=== PATIENT | male | born 1950 | race Caucasian/White ===

== ENCOUNTER → 2016-10-17 | Outpatient (CLI) | payer MEDICAID ==
--- NOTE | 2016-10-17 14:18 | CT ---
EXAMINATION TYPE: CT urogram wo/w con DATE OF EXAM: 10/17/2016 2:04 PM COMPARISON: NONE HISTORY: Patient complains of episode of pelvic pain and gross hematuria. CT DLP: 2919 mGycm Automated exposure control for dose reduction was used. CONTRAST: Performed with IV Contrast, patient injected with 100 mL of Omnipaque 300. TECHNIQUE: Axial images 5 mm thick sections. Pre and postcontrast imaging is performed. Three-D recon structed images performed separately on the ventricular computer by the technologist and presented ar e performed through the renal collecting system. FINDINGS: Limited CT sections are obtained the lung bases which are clear CT ABDOMEN: Liver and spleen of normal density without discrete masses or cysts. The adrenal glands a re normal. Pancreas is unremarkable. Gallbladder is decompressed. Loops of bowel without contrast are normal. The appendix is normal. Note is made of some mild vascular calcification within the aorta. I nferior vena cava is unremarkable. Kidneys are normal without masses cysts or hydronephrosis. No renal stones are evident. On delayed im ages note is made of a tiny cortical renal cyst at the inferior pole right kidney. CT PELVIS: Sigmoid: Within the pelvis has scattered diverticuli without evidence of acute diverticuli tis. No free fluid is within the pelvis. The prostate is prominent and contains calcification. There is inferior impression on the urinary liz dder from the prostate. There is a hypodense dense area at the tip of the prostate which is impressin g on the urinary bladder. Uncertain whether this is a mock effect from the adjacent intense contrast or a more focal hypodense area within the prostate. Urinary bladder fills normally without filling de fects. Extramural defect of the urinary bladder from the prostate is evident. Ureters follow a normal course and contour to the urinary bladder. The left ureter is slightly more p rominent and better visualized than on the right. This could be related to recent passage of a stone. No obstruction is felt to be present. IMPRESSION: 1. MINIMAL PROMINENCE OF THE LEFT URETER COMPARED TO THE RIGHT WHICH CAN BE COMPATIBLE WITH RECENT PA SSAGE OF A RENAL STONE. 2. NO SUSPICIOUS RENAL OR URETERAL STONES ARE EVIDENT AT THIS TIME. NO SUSPICIOUS FILLING DEFECTS WIT HIN THE RENAL CALYCES INFUNDIBULUM RENAL PELVIS OR URETERS. 3. PROSTATE HYPERTROPHY. PLEASE SEE ABOVE DISCUSSION OF THE PROSTATE.
== END | disposition home or self-care (01) ==
LOC: RADCTMAIN 12:59
PROVIDERS: ATTEND Urology
DX: N40.0 Benign prostatic hyperplasia without lower urinary tract symptoms (principal)
CPT/HCPCS: 74178; 74400; Q9967

== ENCOUNTER → 2016-12-15 | Outpatient (CLI) | payer MEDICAID ==
--- NOTE | 2016-12-15 15:28 | MR ---
MR brain without contrast HISTORY: Memory loss, TIA Multiplanar multisequence imaging through the brain No comparisons Two small foci of hyperintensity are present within the left frontal white matter on inversion recove ry and T2-weighted sequences. Mucus retention cyst or polyp noted within the left maxillary sinus. Th ere are normal vascular flow voids. No hemorrhage or hydrocephalus. Mild cortical atrophy is likely a ge-related. Orbits show an unremarkable appearance. Cerebellopontine angles, corpus callosum, pituita ry, cervical medullary junction are normal. IMPRESSION: Nonspecific foci of demyelination questionable clinical significance. Minimal age-related atrophy suspected.
== END | disposition home or self-care (01) ==
LOC: RADMRIMAIN 14:21
PROVIDERS: ATTEND Psychiatry & Neurology Neurology
DX: G45.9 Transient cerebral ischemic attack, unspecified (principal)
CPT/HCPCS: 70551

== ENCOUNTER 2017-04-28 18:31 | Emergency (ER) | payer MEDICAID ==
[2017-04-28 18:40] VITALS: RESP 18; TEMP 98.7
[2017-04-28 19:00] LABS: Basophils # (A) 0.1 k/uL (0-0.2); Basophils % (A) 1 %; CH 30.7; CHCM 34.7; Eosinophils # (A) 0.3 k/uL (0-0.7); Eosinophils % (A) 4 %; HCT 42.1 % (39.0-53.0); HDW 2.73; HGB 14.6 gm/dL (13.0-17.5); Luc # (Auto) 0.17; Luc % (Auto) 3; Lymphocytes # (A) 1.6 k/uL (1.0-4.8); Lymphocytes % (A) 23 %; MCH 30.8 pg (25.0-35.0); MCHC 34.6 g/dL (31.0-37.0); MCV 89.2 fL (80.0-100.0); Mean Platelet Volume 7.9; Monocytes # (A) 0.4 k/uL (0-1.0); Monocytes % (A) 6 %; Neutrophils # (A) 4.5 k/uL (1.3-7.7); Neutrophils % (A) 63 %; RBC 4.72 m/uL (4.30-5.90); RDW 14.2 % (11.5-15.5); WBC (Perox) 7.19
[2017-04-28 19:12] LABS: ALT 39 U/L (21-72); AST 26 U/L (17-59); Alcohol <10 mg/dL; Alkaline Phosphatase 55 U/L (38-126); Anion Gap 10 mmol/L; Blood Urea Nitrogen 20 mg/dL (9-20); Calcium 9.2 mg/dL (8.4-10.2); Carbon Dioxide 21 mmol/L (22-30); Chloride 110 mmol/L (98-107); Glucose 105 mg/dL (74-99); Non-African American GFR(MDRD) >60 (>60 ml/min/1.73 sqM); Sodium 141 mmol/L (137-145); Total Bilirubin 0.7 mg/dL (0.2-1.3)
[2017-04-28 19:15] LABS: INR 1.1 (<1.2); Partial Thromboplastin Time 21.2 sec (22.0-30.0); Prothrombin Time 10.7 sec (9.0-12.0)
[2017-04-28 19:27] LABS: Creatine Kinase 66 U/L (55-170)
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
[2017-04-28 19:34] VITALS: BP 175/97
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
[2017-04-28 19:38] LABS: Appearance,Urine Clear (Clear); Bilirubin,Urine Negative (Negative); Glucose,Urine (UA) Negative (Negative); Ketones,Urine Negative (Negative); Leukocyte Esterase,Urine Negative (Negative); Nitrite,Urine Negative (Negative); Protein,Urine Negative (Negative); Specific Gravity,Urine 1.019 (1.001-1.035); UA Billing (MACRO vs. MICRO) CHEM; Urobilinogen,Urine <2.0 mg/dL (<2.0)
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
[2017-04-28 19:39] LABS: Troponin I <0.012 ng/mL (0.000-0.034)
[2017-04-28 19:40] LABS: Creatine Kinase MB 3.6 ng/mL (0.0-2.4)
--- NOTE | 2017-04-28 19:43 | XR ---
EXAMINATION TYPE: XR chest 1V portable DATE OF EXAM: 04/28/2017 COMPARISON: 01/29/2015 HISTORY: Fall TECHNIQUE: Single frontal view of the chest is obtained. FINDINGS: Heart and mediastinum are normal. Lungs are clear. There is no sign of pleural effusion. T here are chest leads. Bony thorax is intact. IMPRESSION: No active cardiopulmonary disease. No change.
[2017-04-28 20:25] VITALS: PULSE 82
== END 2017-04-28 20:26 | disposition home or self-care (01) ==
LOC: EC 18:31
DX: S06.0X1A Concussion with loss of consciousness of 30 minutes or less, initial encounter (principal); S29.012A Strain of muscle and tendon of back wall of thorax, initial encounter; S00.03XA Contusion of scalp, initial encounter; S00.31XA Abrasion of nose, initial encounter; S00.81XA Abrasion of other part of head, initial encounter; J34.1 Cyst and mucocele of nose and nasal sinus; R40.2412 Glasgow coma scale score 13-15, at arrival to emergency department; R68.84 Jaw pain; I10 Essential (primary) hypertension; Z79.82 Long term (current) use of aspirin; Z79.899 Other long term (current) drug therapy; Z88.7 Allergy status to serum and vaccine; V18.4XXA Pedal cycle driver injured in noncollision transport accident in traffic accident, initial encounter; Y92.89 Other specified places as the place of occurrence of the external cause; Y93.55 Activity, bike riding
CPT/HCPCS: 36415; 70450; 70486; 71010; 72125; 72128; 80053; 80306; 80320; 81003; 82550; 82553; 84484; 85025; 85610; 85730; 86850; 86900; 86901; 93005; 99285

== ENCOUNTER → 2017-10-14 | Outpatient (CLI) | payer MEDICAID ==
[2017-10-14 10:56] LABS: Basophils # (A) 0.1 k/uL (0-0.2); Basophils % (A) 1 %; Eosinophils # (A) 0.2 k/uL (0-0.7); Eosinophils % (A) 3 %; HCT 41.6 % (39.0-53.0); HGB 13.8 gm/dL (13.0-17.5); Lymphocytes # (A) 1.8 k/uL (1.0-4.8); Lymphocytes % (A) 27 %; MCH 29.2 pg (25.0-35.0); MCHC 33.1 g/dL (31.0-37.0); MCV 88.3 fL (80.0-100.0); Mean Platelet Volume 7.9; Monocytes # (A) 0.5 k/uL (0-1.0); Monocytes % (A) 8 %; Neutrophils # (A) 3.9 k/uL (1.3-7.7); Neutrophils % (A) 59 %; Platelet Count 276 k/uL (150-450); RBC 4.71 m/uL (4.30-5.90); RDW 14.3 % (11.5-15.5); WBC 6.5 k/uL (3.8-10.6)
[2017-10-14 11:27] LABS: ALT 30 U/L (21-72); AST 19 U/L (17-59); Albumin 4.4 g/dL (3.5-5.0); Alkaline Phosphatase 61 U/L (38-126); Anion Gap 12 mmol/L; Blood Urea Nitrogen 20 mg/dL (9-20); Calcium 9.4 mg/dL (8.4-10.2); Carbon Dioxide 25 mmol/L (22-30); Chloride 105 mmol/L (98-107); Cholesterol 214 mg/dL (<200); Glucose 106 mg/dL (74-99); HDL Cholesterol 46 mg/dL (40-60); LDL Cholesterol,Calculated 113 mg/dL (0-99); Potassium 4.3 mmol/L (3.5-5.1); Sodium 142 mmol/L (137-145); Total Protein 7.4 g/dL (6.3-8.2); Triglycerides 275 mg/dL (<150)
[2017-10-14 11:37] LABS: T4, Free (Free Thyroxine) 1.05 ng/dL (0.78-2.19)
[2017-10-14 11:51] LABS: Prostate Specific Antigen 1.24 ng/mL (0.00-4.00)
[2017-10-14 18:28] LABS: Hemoglobin A1C 5.2 % (4.0-6.0)
== END | disposition home or self-care (01) ==
LOC: LABWHC1 10:20
PROVIDERS: ATTEND Internal Medicine Geriatric Medicine
DX: Z00.00 Encounter for general adult medical examination without abnormal findings (principal); N40.0 Benign prostatic hyperplasia without lower urinary tract symptoms; I10 Essential (primary) hypertension; E78.5 Hyperlipidemia, unspecified; R73.9 Hyperglycemia, unspecified
CPT/HCPCS: 36415; 80053; 80061; 83036; 84153; 84439; 84443; 85025

== ENCOUNTER → 2018-12-01 | Outpatient (CLI) | payer MEDICAID ==
[2018-12-01 07:42] LABS: Basophils # (A) 0.1 k/uL (0-0.2); Basophils % (A) 1 %; Eosinophils # (A) 0.2 k/uL (0-0.7); Eosinophils % (A) 5 %; HCT 43.8 % (39.0-53.0); HGB 14.2 gm/dL (13.0-17.5); Lymphocytes # (A) 1.3 k/uL (1.0-4.8); Lymphocytes % (A) 27 %; MCH 29.7 pg (25.0-35.0); MCHC 32.5 g/dL (31.0-37.0); MCV 91.3 fL (80.0-100.0); Mean Platelet Volume 7.9; Monocytes # (A) 0.4 k/uL (0-1.0); Monocytes % (A) 8 %; Neutrophils # (A) 2.8 k/uL (1.3-7.7); Neutrophils % (A) 57 %; Platelet Count 231 k/uL (150-450); RDW 14.3 % (11.5-15.5); WBC 4.9 k/uL (3.8-10.6)
[2018-12-01 08:21] LABS: Albumin 4.3 g/dL (3.5-5.0); Calcium 9.2 mg/dL (8.4-10.2); Potassium 4.5 mmol/L (3.5-5.1); Total Protein 6.9 g/dL (6.3-8.2)
[2018-12-01 08:36] LABS: T4, Free (Free Thyroxine) 1.29 ng/dL (0.78-2.19)
[2018-12-01 14:19] LABS: Hemoglobin A1C 5.8 % (4.0-6.0)
--- NOTE | 2018-12-01 14:46 | US ---
EXAMINATION TYPE: US thyroid st tissue head/neck DATE OF EXAM: 12/01/2018 COMPARISON: MRI cervical spine 12/06/2014, CT cervical spine 04/28/2017 CLINICAL HISTORY: E04.1 Goiter. Hx of nodules from previous medical imaging. No prior ultrasound on thyroid. No thyroid medications. Patient states being exposed to radiation as a kid for sinus treat ments. GLAND SIZE: Right Lobe: 5.8 x 2.0 x 2.6 cm Overall Parenchyma: heterogenous Left Lobe: 4.0 x 1.4 x 1.3 cm Overall Parenchyma: heterogeneous Isthmus Thickness: 0.2 cm NODULES RIGHT: # of nodules measured on right: 4 Multi-nodular thyroid visualized. Multiple subcentimeter nodules visualized. Largest documented. 1. 1.8 X 1.6 x 1.6 cm mixed nodule at the mid pole with well-defined margins; . This nodule is wid er as tall and shows intranodular vascularity. Prior size: This is stable in size from the CT examination and the MRI examination which measured this nodule at 1.9 cm. 2. 2.0 X 1.6 x 2.1 cm mixed nodule vs lobular thyroid at the lower pole with poorly defined margins. This nodule is taller than wide and shows intranodular vascularity. Prior size: No previous 3. 1.1 X 0.8 x 0.5 cm isoechoic nodule at the upper anterior pole with well-defined margins. This nodule is wider than tall and shows intranodular vascularity. Prior size: No previous 4. 0.9 X 0.7 x 0.8 cm mixed nodule at the upper lateral pole with well-defined margins. This nodule is taller than wide and shows intranodular vascularity. Prior size: No previous LEFT: # of nodules measured on left: 2 1. 1.2 X 0.8 x 0.9 cm isoechoic nodule at the mid pole with poorly defined margins. This nodule is taller than wide and shows intranodular vascularity. Prior size: No previous 2. 0.4 X 0.5 x 0.4 cm hypoechoic nodule at the Lower pole with well-defined margins. This nodule i s wider than tall and shows no intranodular vascularity. Prior size: No previous ISTHMUS: # of nodules measured in the isthmus: 0 Bilateral neck scanned, no evidence of lymphadenopathy. Right thyroid lobe appears enlarged in size. IMPRESSION: 1. Multinodular goiter. The largest nodules are documented above. Monitor with ultrasound.
== END | disposition home or self-care (01) ==
LOC: RADUSWWP 06:50
PROVIDERS: ATTEND Internal Medicine Geriatric Medicine
DX: E04.2 Nontoxic multinodular goiter (principal); I10 Essential (primary) hypertension; R73.9 Hyperglycemia, unspecified; E78.5 Hyperlipidemia, unspecified; N40.0 Benign prostatic hyperplasia without lower urinary tract symptoms; E04.1 Nontoxic single thyroid nodule
CPT/HCPCS: 84439; 80061; 80053; 84443; 85025; 83036; 76536; 36415; G0103

== ENCOUNTER → 2019-02-25 | Outpatient (CLI) | payer MEDICAID ==
--- NOTE | 2019-02-25 09:13 | MR ---
EXAMINATION TYPE: MR knee LT wo con DATE OF EXAM: 02/25/2019 COMPARISON: X-ray 02/14/2019 HISTORY: Left knee pain TECHNIQUE: Multiplanar, multisequence imaging of the left knee is performed without IV contrast. FINDINGS: There is a large area of marrow edema involving the lateral femur extending to the articula r surface measuring approximately 5 x 5 cm. No definite fracture line. There is a complex tear involving the posterior horn and body of the lateral meniscus. Anterior horn extension not excluded. Intrasubstance signal the posterior horn the medial meniscus is most typical of mucoid degeneration. Degenerative tear not excluded. Articular cartilage is maintained. There is very minimal fibrillation involving the apex of the peterson lar cartilage. Small amount of fluid is seen in the suprapatellar bursa. Quadriceps and patellar tend ons intact. Within the popliteal fossa there is a 0.7 x 0.7 x 3.7 cm popliteal fossa cyst. Posterior cruciate ligaments have a normal appearance. Medial collateral ligament has a normal appearance. Anterior cruciate ligament demonstrates slight ill definition the posterior fibers which may represen t an ACL strain. No definite tear identified. There is thickening and increased signal at the femoral origin of the lateral collateral ligament com patible with severe sprain and partial tear. There is also increased intrasubstance signal within the popliteus tendon compatible with tendinosis without evidence of distinct tear. IMPRESSION: 1. Large area of marrow edema involving the lateral femur measuring 5 x 5 cm and extending to the art icular surface correlate for bone contusion. More focal area at the articular surface measuring 9 mm could represent developing osteochondritis or subchondral and tiny compression fracture.. Correlate f or history of trauma. 2. Thickening and increased signal at the femoral origin of the lateral collateral ligament compatibl e severe sprain and partial tear. 3. popliteus tendinosis. 4. complex tear posterior horn and body lateral meniscus. Anterior horn extension not excluded. 5. Findings involving the posterior horn of the medial meniscus most typical of myxoid degeneration. Degenerative tear not excluded. 6. ACL strain with no definite tear
== END | disposition home or self-care (01) ==
LOC: RADMRIMAIN 08:21
PROVIDERS: ATTEND Orthopaedic Surgery
DX: S83.422A Sprain of lateral collateral ligament of left knee, initial encounter (principal)

== ENCOUNTER → 2020-03-01 | Outpatient (CLI) | payer MEDICAID ==
--- NOTE | 2020-03-01 14:18 | XR ---
Left wrist HISTORY: Trauma and pain 4 views the left wrist Bone mineralization, joint spaces and alignment are maintained IMPRESSION: No fracture or dislocation
--- NOTE | 2020-03-01 14:58 | MR ---
EXAMINATION TYPE: MR knee RT wo con DATE OF EXAM: 03/01/2020 COMPARISON: 07/31/2014 HISTORY: 69-year-old male pain and swelling, M25.561 Pain in right knee, fell off ladder, prior imagi ng in pacs TECHNIQUE: Multiplanar, multisequence imaging of the right knee is performed without IV contrast. FINDINGS: ACL fibers are now inhomogeneous with some undulation. Findings suggest a proximal rupture or extensi ve partial tear. PCL is thickened at the upper limits of normal at 7 mm. There is some intrinsic increased signal on p ossible partial tear. Edema on either side of the intact MCL fibers. The iliotibial band is intact. Mild increased signal at the femoral attachment of the LCL proper. Ext ensive edema throughout the popliteus muscle suggesting strain and edema and some tearing along the m yotendinous junction. Conjoined tendon insertion appears intact. There is signal within the posterior horn of the medial meniscus extending to the junction with the m eniscal body. Signal may contact the tibial articular surface on one image, sagittal series 401 image 9. Lateral meniscus appears grossly intact with scattered degenerative signal. Mild superficial cartilage fraying within both medial and lateral compartments. More moderate to severe cartilage loss along the mid patella and medial patellar facet and mild diffu se thinning along the trochlear articular cartilage. Metal artifact related to prior internal fixation along the apex of the patella. Extensor mechanism appears intact. There are impaction fractures along the posterior lips of the tibial plateau on both sides. Along the posterior lip of the lateral tibial plateau, the fracture fragment is depressed by 4 mm and measures 1.7 cm wide by 1.0 cm AP. Along the posterior lip of the medial tibial plateau, there is only slight articular surface irregula rity. Very large knee joint effusion. There is edema suggesting extravasation of joint fluid into the deep soft tissues. Leaking Davis cyst is also demonstrated measuring 5.4 x 3.0 cm. Area of confluent edema also tracks along the superficial aspect of the popliteus muscle. Normal popliteal artery anatomy and muscle bulk. No suspicious bone marrow replacement. IMPRESSION: 1. Proximal ACL rupture versus extensive partial tear. 2. Grade 1 sprains of the MCL and proximal LCL proper. 3. Popliteus muscle strain with associated edema and hemorrhage and some tearing along its myotendino us junction. A concurrent posterolateral corner injury is not excluded given confluent edema here. 4. Impaction fractures along the posterior lips of both the lateral and medial tibial plateau. The la teral tibial plateau impaction fracture measures 1.7 x 1.0 cm with 4 mm of articular surface depressi on. No significant depression of the medial tibial plateau. 5. Possible oblique tear posterior horn of the medial meniscus. Signal extends to the tibial articula r surface on one slice. 6. Very large knee joint effusion. Extravasation of joint fluid into the deep soft tissues. A leaking Davis cyst measures 5.4 cm. 7. 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 Prior internal fixation at the woodruff llar apex.
== END | disposition home or self-care (01) ==
LOC: RADMRIMAIN 12:54
PROVIDERS: ATTEND Internal Medicine Geriatric Medicine
DX: M25.532 Pain in left wrist (principal); M25.561 Pain in right knee; M25.461 Effusion, right knee; S86.811A Strain of other muscle(s) and tendon(s) at lower leg level, right leg, initial encounter; M71.21 Synovial cyst of popliteal space [Baker], right knee; M22.41 Chondromalacia patellae, right knee

== ENCOUNTER → 2020-03-22 | Outpatient (CLI) | payer MEDICAID ==
[2020-03-22 12:16] LABS: Basophils # (A) 0.1 k/uL (0-0.2); Basophils % (A) 1 %; Eosinophils # (A) 0.1 k/uL (0-0.7); Eosinophils % (A) 1 %; HCT 42.2 % (39.0-53.0); HGB 13.8 gm/dL (13.0-17.5); Lymphocytes # (A) 1.5 k/uL (1.0-4.8); Lymphocytes % (A) 28 %; MCH 29.4 pg (25.0-35.0); MCHC 32.6 g/dL (31.0-37.0); Monocytes # (A) 0.4 k/uL (0-1.0); Monocytes % (A) 7 %; Neutrophils # (A) 3.4 k/uL (1.3-7.7); Neutrophils % (A) 61 %; Platelet Count 263 k/uL (150-450); RBC 4.69 m/uL (4.30-5.90); RDW 13.8 % (11.5-15.5); WBC 5.5 k/uL (3.8-10.6)
[2020-03-22 18:48] LABS: African American GFR (CKD) 89.2 (60.0-200.0); Albumin 4.1 g/dL (3.80-4.90); Albumin/Globulin Ratio 1.71 (1.60-3.17); Anion Gap 5.4 mmol/L (4.00-12.00); Carbon Dioxide 26.6 mmol/L (21.6-31.8); Chol/HDL Ratio 4.97; Globulin 2.4 g/dL (1.6-3.3); LDL Cholesterol,Calculated 109.8 mg/dL (0.0-131.0); Potassium 4.1 mmol/L (3.5-5.5); Total Bilirubin 0.9 mg/dL (0.3-1.2); Total Protein 6.5 g/dL (6.2-8.2); VLDL Calculation 41.2 mg/dL (5.00-40.00)
[2020-03-22 18:56] LABS: Prostate Specific Antigen 1.6 ng/mL (0.0-4.5); T4, Free (Free Thyroxine) 1.2 ng/dL (0.80-1.80)
[2020-03-22 20:44] LABS: Hemoglobin A1C 5.6 % (4.0-6.0)
== END | disposition home or self-care (01) ==
LOC: LABWHC1 11:44
PROVIDERS: ATTEND Internal Medicine Geriatric Medicine
DX: I10 Essential (primary) hypertension (principal); E78.2 Mixed hyperlipidemia; N40.0 Benign prostatic hyperplasia without lower urinary tract symptoms; E04.1 Nontoxic single thyroid nodule; R73.9 Hyperglycemia, unspecified
CPT/HCPCS: 36415; 80053; 80061; 83036; 84153; 84439; 84443; 85025

== ENCOUNTER → 2021-04-10 | Outpatient (CLI) | payer MEDICAID | END | disposition home or self-care (01) | LOC: LABWHC1 07:55 | PROVIDERS: ATTEND Thoracic Surgery (Cardiothoracic Vascular Surgery) | DX: Z20.822 Contact with and (suspected) exposure to COVID-19 (principal) | CPT/HCPCS: 87635 ==

== ENCOUNTER → 2021-08-15 | Outpatient (CLI) | payer MEDICAID | END | disposition home or self-care (01) | LOC: LABWHC1 12:04 | PROVIDERS: ATTEND Thoracic Surgery (Cardiothoracic Vascular Surgery) | DX: Z20.822 Contact with and (suspected) exposure to COVID-19 (principal) | CPT/HCPCS: 87635; C9803 ==

== ENCOUNTER → 2021-11-29 | Outpatient (CLI) | payer MEDICARE ==
--- NOTE | 2021-11-29 18:52 | ECHOF ---
Referral Reason:I34.0 Mitral valve insufficiency MEASUREMENTS -------- HEIGHT: 182.9 cm WEIGHT: 91.6 kg BP: RVIDd: 3.1 cm (< 3.3) IVSd: 1.3 cm (0.6 - 1.1) LVIDd: 4.7 cm (3.9 - 5.3) LVPWd: 1.0 cm (0.6 - 1.1) IVSs: 1.4 cm LVIDs: 3.3 cm LVPWs: 1.1 cm LAESV Index (A-L): 30.96 ml/m Ao Diam: 3.1 cm (2.0 - 3.7) AV Cusp: 1.8 cm (1.5 - 2.6) LA Diam: 4.1 cm (2.7 - 3.8) MV EXCURSION: 17.701 mm (> 18.000) MV EF SLOPE: 109 mm/s (70 - 150) EPSS: 0.3 cm MV E Satish: 0.53 m/s MV DecT: 190 ms MV A Satish: 0.76 m/s MV E/A Ratio: 0.70 RAP: 5.00 mmHg RVSP: 35.92 mmHg FINDINGS -------- Sinus rhythm. This was a technically adequate study. The left ventricular size is normal. There is mild concentric left ventricular hypertrophy. Overa ll left ventricular systolic function is normal with, an EF between 55 - 60 %. The diastolic fillin g pattern is normal for the age of the patient 12.29. The right ventricle is normal in size. LA is midly dilated 29-33ml/m2. The right atrial size is normal. Interatrial and interventricular septum intact. The aortic valve is trileaflet, and appears structurally normal. No aortic stenosis or regurgitation. The mitral valve leaflets are mildly thickened. Mild mitral regurgitation is present. The tricuspid valve appears structurally normal. Mild tricuspid regurgitation present. There is m ild pulmonary hypertension. The right ventricular systolic pressure, as measured by Doppler, is 35. 92mmHg. There is no pulmonic regurgitation present. The aortic root size is normal. There is no pericardial effusion. CONCLUSIONS -------- 1. There is mild concentric left ventricular hypertrophy. 2. Overall left ventricular systolic function is normal with, an EF between 55 - 60 %. 3. LA is midly dilated 29-33ml/m2. 4. The aortic valve is trileaflet, and appears structurally normal. No aortic stenosis or regurgitati on. 5. Mild mitral regurgitation is present. 6. Mild tricuspid regurgitation present. 7. There is mild pulmonary hypertension. 8. There is no pericardial effusion. FROZEN YOGURT MAKER: Ernestine Garcia RDCS
== END | disposition home or self-care (01) ==
LOC: RADECHMAIN 13:36
PROVIDERS: ATTEND Internal Medicine Geriatric Medicine
DX: I08.1 Rheumatic disorders of both mitral and tricuspid valves (principal); I27.20 Pulmonary hypertension, unspecified
CPT/HCPCS: 93306

== ENCOUNTER → 2022-01-01 | Outpatient (CLI) | payer MEDICARE ==
[2022-01-01 18:07] LABS: Basophils # (A) 0.07 X 10*3/uL (0.00-0.10); Basophils % (A) 1.1 %; Eosinophils # (A) 0.18 X 10*3/uL (0.04-0.35); Eosinophils % (A) 2.7 %; HCT 41.4 % (39.6-50.0); HGB 13.8 g/dL (13.0-17.0); Immature Grans, Automated 0.3 %; Lymphocytes # (A) 1.79 X 10*3/uL (0.90-5.00); Lymphocytes % (A) 27.2 %; MCH 30.1 pg (27.0-32.0); MCHC 33.3 g/dL (32.0-37.0); MCV 90.4 fL (80.0-97.0); Monocytes # (A) 0.84 X 10*3/uL (0.20-1.00); Monocytes % (A) 12.8 %; NRBC Per 100 WBC 0 /100 WBCS (0.0-0.0); Neutrophils # (A) 3.67 X 10*3/uL (1.80-7.70); Neutrophils % (A) 55.9 %; Platelet Count 266 X 10*3/uL (140-440); RBC 4.58 X 10*6/uL (4.40-5.60); RDW 13.9 % (11.5-14.5); WBC 6.57 X 10*3/uL (4.50-10.00)
[2022-01-01 18:49] LABS: ALT 33 U/L (10-49); AST 23 U/L (14-35); African American GFR (CKD) 64.1 (60.0-200.0); Albumin 4.6 g/dL (3.8-4.9); Albumin/Globulin Ratio 1.64 (1.60-3.17); Alkaline Phosphatase 56 U/L (41-126); BUN/Creat Ratio 21.54 Ratio (12.00-20.00); Calcium 9.3 mg/dL (8.7-10.3); Carbon Dioxide 27.9 mmol/L (20.0-27.5); Chloride 104 mmol/L (96-109); Chol/HDL Ratio 4.99 Ratio; Globulin 2.8 g/dL (1.6-3.3); Glucose 98 mg/dL (70-110); LDL Cholesterol,Calculated 114.5 mg/dL (0.0-131.0); Non-African American GFR(CKD) 55.3 (60.0-200.0); Potassium 4.2 mmol/L (3.5-5.5); Sodium 143 mmol/L (135-145); Total Protein 7.4 g/dL (6.2-8.2)
== END | disposition home or self-care (01) ==
LOC: LABWHC1 12:54
PROVIDERS: ATTEND Internal Medicine Geriatric Medicine
DX: E78.2 Mixed hyperlipidemia (principal); E04.1 Nontoxic single thyroid nodule; R73.9 Hyperglycemia, unspecified; N40.0 Benign prostatic hyperplasia without lower urinary tract symptoms
CPT/HCPCS: 84439; 80061; 80053; 84443; 85025; 83036; 36415; G0103

== ENCOUNTER → 2022-01-23 | Outpatient (CLI) | payer MEDICARE ==
--- NOTE | 2022-01-24 16:52 | US ---
EXAMINATION TYPE: US thyroid st tissue head/neck DATE OF EXAM: 01/23/2022 COMPARISON: US 2019 CLINICAL HISTORY: E04.1 NONTOXIC SINGLE THYROID NODULE. GLAND SIZE: Right Lobe: 5.7 x 2.2 x 2.1 cm Overall Parenchyma: heterogenous Left Lobe: 4.5 x 1.6 x 1.6 cm Overall Parenchyma: heterogeneous Isthmus Thickness: 0.3 cm NODULES RIGHT: # of nodules measured on right: 2 1. 1.6 X 1.6 x 1.8 cm, lower mid, solid or almost completely solid, hypoechoic nodule, which is wid er than tall, with ill-defined margins, without echogenic foci. Prior size: 1.8 x 1.6 x 1.6 cm 2. 1.8 X 1.7 x 1.7 cm, lower mid, solid or almost completely solid, hypoechoic nodule, which is wid er than tall, with ill-defined margins, without echogenic foci. TR 4. Prior size: 2.0 x 2.1 x 1.6 cm 3. multiple subcentimeter nodules LEFT: # of nodules measured on left: 1 1. 1.2 X 0.8 x 1.0 cm, upper mid, mixed cystic and solid, isoechoic nodule, which is wider than levy l, with ill-defined margins, without echogenic foci. TR 2 Prior size: 1.2 x 0.9 x 0.8 cm 2. multiple subcentimeter nodules ISTHMUS: # of nodules measured in the isthmus: 0 Bilateral neck scanned, no evidence of lymphadenopathy. IMPRESSION: 1. Heterogenous thyroid. 2. Moderately suspicious nodule mid right lobe thyroid. Biopsy of this nodule is recommended if not previously performed. 2017 ACR TI-RADS LEVEL: TR-RADS 4 - Moderately Suspicious: Follow if > 1 cm, FNA if > 1.5 cm *Highest TI-RADS level nodule reported
== END | disposition home or self-care (01) ==
LOC: RADUSWWP 15:24
PROVIDERS: ATTEND Internal Medicine Geriatric Medicine
DX: E04.2 Nontoxic multinodular goiter (principal)
CPT/HCPCS: 76536

== ENCOUNTER → 2022-05-20 | Outpatient (CLI) | payer MEDICARE ==
[2022-05-20 09:27] LABS: Basophils # (A) 0.1 k/uL (0-0.2); Basophils % (A) 1 %; Eosinophils # (A) 0.3 k/uL (0-0.7); Eosinophils % (A) 4 %; HCT 40.9 % (39.0-53.0); HGB 14.2 gm/dL (13.0-17.5); Lymphocytes # (A) 1.8 k/uL (1.0-4.8); Lymphocytes % (A) 24 %; MCH 30.6 pg (25.0-35.0); MCHC 34.8 g/dL (31.0-37.0); MCV 88.1 fL (80.0-100.0); Mean Platelet Volume 8.4; Monocytes # (A) 0.5 k/uL (0-1.0); Monocytes % (A) 7 %; Neutrophils # (A) 4.6 k/uL (1.3-7.7); Neutrophils % (A) 63 %; Platelet Count 215 k/uL (150-450); RBC 4.64 m/uL (4.30-5.90); RDW 14.2 % (11.5-15.5); WBC 7.3 k/uL (3.8-10.6)
[2022-05-20 09:38] LABS: AST 35 U/L (17-59); African American GFR (CKD) 83 (>60 ml/min/1.73 sqM); Albumin 4.4 g/dL (3.5-5.0); Albumin/Globulin Ratio 1.5; Anion Gap 12 mmol/L; Blood Urea Nitrogen 19 mg/dL (9-20); Carbon Dioxide 24 mmol/L (22-30); Chloride 105 mmol/L (98-107); Glucose 94 mg/dL (74-99); Non-African American GFR(CKD) 72 (>60 ml/min/1.73 sqM); Potassium 4.4 mmol/L (3.5-5.1); Sodium 141 mmol/L (137-145); Total Bilirubin 0.8 mg/dL (0.2-1.3); Total Protein 7.4 g/dL (6.3-8.2)
[2022-05-20 09:39] LABS: ALT 29 U/L (4-49); Alkaline Phosphatase 56 U/L (38-126)
--- NOTE | 2022-05-20 10:01 | MR ---
EXAMINATION TYPE: MR brain wo/w con DATE OF EXAM: 05/20/2022 COMPARISON: 04/28/2017, 12/15/2016 HISTORY: Right arm and thigh numbness. TECHNIQUE: Multiplanar, multisequence images of the brain and brainstem is performed without and with IV contras t, utilizing 10 mL intravenous Gadavist . FINDINGS: Diffusion weighted images demonstrate no evidence of a recent infarct or other diffusion ab normality. Tiny area of increased signal involving the superior right parietal cortex 3 mm on diffusi on imaging appears to be artifactual. There are couple focal sub-5 mm areas of abnormal signal in the white matter to small to characterize and of doubtful significance and likely on the basis of remote microvascular ischemic. The brain volume is age appropriate. Midline structures demonstrate normal morphology. The craniocervical junction appears within normal limits. Post contrast images demonstrate reduced enhancement in the anterior pituitary gland is smal l neoplasm likely on the basis of a pituitary microadenoma. There is a 1 mm area of enhancement near the left thalamus postcontrast axial image 15 to small to characterize. May be vascular related to ti ny cryptic AVM The dural venous sinuses appear patent. Changes of chronic sinusitis. Orbits are symme tric. IMPRESSION: 1. Minimal nonspecific white matter changes most typical of remote white matter ischemia. 2. There is a 5 mm area of reduced signal in the anterior pituitary gland postcontrast images suspici ous for a microadenoma correlate clinically. 3. There is a 1 to 2 mm nodular area of enhancement left thalamus too small to characterize. The dens ity in the basis of tiny cryptic AVM. Recommend short-term follow-up 3-6 month MRI with contrast for stability to exclude other etiologies..
--- NOTE | 2022-05-20 11:00 | XR ---
EXAMINATION TYPE: XR cervical spine comp DATE OF EXAM: 05/20/2022 TECHNIQUE: Frontal, lateral, oblique, and open mouth view of the cervical spine are obtained. HISTORY: [id number] COMPARISON: CTA neck same day. FINDINGS: The cervical spine is visualized in its entirety from C1 thru the top of T1 level, it is s atisfactory in alignment without evidence of acute fracture or dislocation. The pre-vertebral soft t issue appears within normal limits. The C1-C2 articulation is within normal limits on the open mouth view. Vertebral body heights are maintained. Mild disc space narrowing and anterior spurring C5-C6 level. Mild disc space narrowing C7-T1 level. Prominent spur from the anterior-inferior C3 vertebra. The oblique images show some neural foraminal narrowing of bilateral C3-C4 level due to uncovertebral facet spurring and at left C4-C5 level. Mild calcified plaque left carotid bulb noted in the overlyi ng soft tissue. IMPRESSION: As above.
--- NOTE | 2022-05-20 11:05 | CT ---
EXAMINATION TYPE: CT angio neck CT DLP: 324.20 mGycm, Automated exposure control for dose reduction was used. DATE OF EXAM: 05/20/2022 10:45 AM COMPARISON: CT cervical thoracic spine 04/28/2017. CLINICAL INDICATION:Male, 71 years old with history of I63.9 CEREBRAL INFARCTION, UNSPECIFIED; PHH, C erebral Infarction TECHNIQUE: Axially acquired helical CT angiogram of the neck was obtained with contrast utilizing 65 cc of Isovue-370 administered intravenously. Axial images are supplemented with 3D reconstructions wh ich were post-processed at an independent workstation. NASCET criteria used. FINDINGS: CTA NECK: Right Carotid System: The common carotid artery and external carotid artery are patent. The carotid bifurcation demonstrate s no evidence of hemodynamically significant stenosis. The remaining portions of the internal carotid artery demonstrate normal size without significant narrowing. Left Carotid System: The common carotid artery and external carotid artery are patent. Mild calcified plaque at the caroti d bulb. The carotid bifurcation demonstrates no evidence of hemodynamically significant stenosis. The remaining portions of the internal carotid artery demonstrate normal size without significant narrow ing. Vertebral arteries are patent without evidence hemodynamically significant stenosis. Right vertebral artery is dominant. There is a three-vessel aortic arch. The origins of the great vessels are patent. No evidence of hemo dynamically significant stenosis. Degenerative changes of the visualized spine. Multinodular enlarged thyroid gland. This is most prominent involving the right thyroid lobe. IMPRESSION: 1. No evidence of dissection of the cervical internal carotid arteries or vertebral arteries or any e vidence of significant stenosis at the carotid bifurcations. 2. Multinodular thyroid goiter.
[2022-05-20 11:18] LABS: Erythrocyte Sedimentation Rate 9 mm/hr (0-15)
[2022-05-20 17:43] LABS: Chol/HDL Ratio 6.38 Ratio
== END | disposition home or self-care (01) ==
LOC: RADMRIMAIN 08:39
PROVIDERS: ATTEND Internal Medicine Geriatric Medicine
DX: I63.9 Cerebral infarction, unspecified (principal)
CPT/HCPCS: 80061; 80053; 85652; 82607; 82746; 84443; 85025; 83721; 72050; 70498; 36415; 70553; Q9967; A9585

== ENCOUNTER → 2022-06-25 | Outpatient (CLI) | payer MEDICARE ==
[2022-06-25 08:44] LABS: Basophils # (A) 0.1 k/uL (0-0.2); Basophils % (A) 1 %; Eosinophils # (A) 0.2 k/uL (0-0.7); Eosinophils % (A) 3 %; HCT 41.4 % (39.0-53.0); HGB 14.2 gm/dL (13.0-17.5); Lymphocytes # (A) 1.4 k/uL (1.0-4.8); Lymphocytes % (A) 23 %; MCH 30.6 pg (25.0-35.0); MCHC 34.3 g/dL (31.0-37.0); Mean Platelet Volume 8.3; Monocytes # (A) 0.4 k/uL (0-1.0); Monocytes % (A) 7 %; Neutrophils % (A) 65 %; Platelet Count 246 k/uL (150-450); RBC 4.65 m/uL (4.30-5.90); RDW 14.1 % (11.5-15.5); WBC 6.1 k/uL (3.8-10.6)
[2022-06-25 15:41] LABS: ALT 39 U/L (10-49); AST 25 U/L (14-35); African American GFR (CKD) 70.6 (60.0-200.0); Albumin 4.2 g/dL (3.8-4.9); Albumin/Globulin Ratio 1.45 (1.60-3.17); Alkaline Phosphatase 54 U/L (41-126); BUN/Creat Ratio 16.33 Ratio (12.00-20.00); Blood Urea Nitrogen 19.6 mg/dL (9.0-27.0); Calcium 8.8 mg/dL (8.7-10.3); Carbon Dioxide 22.9 mmol/L (20.0-27.5); Chloride 110 mmol/L (96-109); Chol/HDL Ratio 4.45 Ratio; Globulin 2.9 g/dL (1.6-3.3); Glucose 111 mg/dL (70-110); LDL Cholesterol,Calculated 77.4 mg/dL (0.0-131.0); Non-African American GFR(CKD) 60.9 (60.0-200.0); Potassium 4.1 mmol/L (3.5-5.5); Sodium 144 mmol/L (135-145); Total Protein 7.1 g/dL (6.2-8.2)
== END | disposition home or self-care (01) ==
LOC: LABWHC1 08:13
PROVIDERS: ATTEND Internal Medicine Geriatric Medicine
DX: N40.0 Benign prostatic hyperplasia without lower urinary tract symptoms (principal); R79.9 Abnormal finding of blood chemistry, unspecified
CPT/HCPCS: 36415; 80053; 80061; 82024; 84153; 84403; 84439; 84443; 85025

== ENCOUNTER → 2022-10-31 | Outpatient (CLI) | payer MEDICARE ==
--- NOTE | 2022-10-31 09:09 | US ---
EXAMINATION TYPE: US renal artery duplex complete DATE OF EXAM: 10/31/2022 COMPARISON: NONE CLINICAL HISTORY: I10 htn. Patient is on 3 different hypertensive meds to control htn. MEASUREMENTS: RENAL SIZE: Rt Kidney: 10.6 x 4.8 x 4.8cm Lt Kidney: 10.4 x 5.6 x 5.5cm RESISTANCE INDEX Right: 0.62 Left: 0.62 RA/AO RATIO (< 3.5 ) Right: 1.5 Left: 1.0 RA VELOCITY ( < 180 cm/s) Right: 163cm/s Left: 111.cm/s Proximal aorta obscured by overlying bowel gas. Visualized portion of aorta appears within normal limits, some minimal plaque seen midline. Small left parapelvic cyst measuring 0.8 x 0.7 x 0.9 cm. No hydronephrosis, nephrolithiasis, or solid mass identified within both kidneys. Sharp upstroke of segmental arteries, no evidence of renal artery stenosis with this ultrasound. IMPRESSION: No ultrasound evidence of renal artery stenosis.
--- NOTE | 2022-10-31 09:10 | US ---
EXAMINATION TYPE: US abdomen complete DATE OF EXAM: 10/31/2022 COMPARISON: NONE CLINICAL HISTORY: I10 htn. TECHNIQUE: Multiple sonographic images of the abdomen are obtained. FINDINGS: EXAM MEASUREMENTS: Liver Length: 13.5 cm Gallbladder Wall: 0.2 cm CBD: 0.1 cm Spleen: 11.0 cm Right Kidney: 10.6 x 4.8 x 4.7 cm Left Kidney: 10.4 x 5.6 x 5.5 cm ROLE PLAYER NOTES: Extensive overlying bowel gas, technically difficult, somewhat limited study. Pancreas: Obscured by bowel gas Liver: wnl Gallbladder: wnl Evidence for sonographic Jiménez's sign: no CBD: wnl Upper IVC: wnl Spleen: wnl These images in renal artery study. Right Kidney: wnl Left Kidney: cyst measuring 0.8 x 0.7 x 0.9 Abd Aorta: The liver is homogenous. The intrahepatic portion of the IVC and proximal abdominal aorta are within normal limits. There is no evidence of cholelithiasis. Common bile duct is unremarkable. The panc reas is obscured by overlying bowel gas. The spleen is unremarkable. Kidneys are symmetric and free of hydronephrosis. Renal sinus cyst identified in the left kidney measuring up to 0.9 cm. Cortical me dullary differentiation is maintained bilaterally. IMPRESSION: No acute process.
== END | disposition home or self-care (01) ==
LOC: RADUSWWP 06:55
PROVIDERS: ATTEND Internal Medicine Geriatric Medicine
DX: I10 Essential (primary) hypertension (principal); R10.9 Unspecified abdominal pain
CPT/HCPCS: 76700; 93975

== ENCOUNTER → 2022-12-03 | Outpatient (CLI) | payer MEDICARE ==
[2022-12-03 11:03] LABS: Basophils # (A) 0.12 X 10*3/uL (0.00-0.10); Basophils % (A) 1.6 %; Eosinophils # (A) 0.28 X 10*3/uL (0.04-0.35); Eosinophils % (A) 3.6 %; HCT 43.1 % (39.6-50.0); HGB 14.3 g/dL (13.0-17.0); Immature Grans, Automated 0.3 %; Lymphocytes # (A) 2.48 X 10*3/uL (0.90-5.00); Lymphocytes % (A) 32.2 %; MCH 30.2 pg (27.0-32.0); MCHC 33.2 g/dL (32.0-37.0); MCV 90.9 fL (80.0-97.0); Mean Platelet Volume 10.4 fL (9.5-12.2); Monocytes # (A) 0.88 X 10*3/uL (0.20-1.00); Monocytes % (A) 11.4 %; NRBC Per 100 WBC 0 /100 WBCS (0.0-0.0); Neutrophils # (A) 3.92 X 10*3/uL (1.80-7.70); Neutrophils % (A) 50.9 %; Platelet Count 284 X 10*3/uL (140-440); RBC 4.74 X 10*6/uL (4.40-5.60); RDW 14.6 % (11.5-14.5)
[2022-12-03 11:13] LABS: ALT 42 U/L (10-49); AST 25 U/L (14-35); African American GFR (CKD) 72.8 (60.0-200.0); Albumin 4.4 g/dL (3.8-4.9); Albumin/Globulin Ratio 1.65 (1.60-3.17); Alkaline Phosphatase 55 U/L (41-126); BUN/Creat Ratio 16.15 Ratio (12.00-20.00); Blood Urea Nitrogen 18.9 mg/dL (9.0-27.0); Calcium 9.2 mg/dL (8.7-10.3); Carbon Dioxide 24.6 mmol/L (20.0-27.5); Chloride 108 mmol/L (96-109); Globulin 2.7 g/dL (1.6-3.3); Glucose 119 mg/dL (70-110); Non-African American GFR(CKD) 62.8 (60.0-200.0); Potassium 4.2 mmol/L (3.5-5.5); Sodium 143 mmol/L (135-145); Total Protein 7.1 g/dL (6.2-8.2)
== END | disposition home or self-care (01) ==
LOC: LABWHC1 07:46
PROVIDERS: ATTEND Internal Medicine Geriatric Medicine
DX: E78.2 Mixed hyperlipidemia (principal); I63.9 Cerebral infarction, unspecified; R73.9 Hyperglycemia, unspecified; E07.9 Disorder of thyroid, unspecified; R97.20 Elevated prostate specific antigen [PSA]
CPT/HCPCS: 36415; 80053; 80061; 83036; 84153; 84439; 84443; 85025

== ENCOUNTER → 2023-03-16 | Outpatient (CLI) | payer MEDICARE ==
--- NOTE | 2023-03-17 09:31 | MR ---
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 The patient was then given intravenous contrast and multi planar, T1 fat-saturation images wer e obtained. IV Contrast: 9 cc Gadavist FINDINGS: Stable appearing nonenhancing lesion in the pituitary gland which is not significantly changed from p rior measuring 6 mm in anterior-posterior dimension. Left thalamus and area of enhancement does not d emonstrate enhancement on today's exam it is low T1 high T2 signal with corresponding susceptibility weighted blooming artifact. The milligan-white junctions, ventricular system, basal cisterns appear unremarkable. Diffusion-weighted imaging shows no evidence of restricted diffusion to suggest acute/subacute infarct. Intracranial art erial flow voids are maintained. Midline structures show no abnormality. Mild scattered foci of high T2 signal intensity are seen within the periventricular white matter. After administration of gadolin ium, no abnormal enhancement is seen. The bone marrow signal is within normal limits. Paranasal sinuses and mastoid air cells: No significant paranasal sinus disease. Visualized orbits: Orbital contents are intact. IMPRESSION: 1. Pinpoint area of enhancement on prior MRI brain 05/20/2022 does not demonstrate enhancement on francine kidd's exam. It is low T1 high T2 signal with blooming artifact suggesting hemosiderin deposition findi ngs could represent small cavernoma given the blooming artifact. 2. 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 3. No evidence for acute/subacute infarct, or abnormal enhancement. 4. Minimal nonspecific white matter changes, likely related to small vessel ischemic disease
== END | disposition home or self-care (01) ==
LOC: RADMRIMAIN 18:45
PROVIDERS: ATTEND Internal Medicine Geriatric Medicine
DX: Q28.2 Arteriovenous malformation of cerebral vessels (principal); D35.2 Benign neoplasm of pituitary gland; R90.82 White matter disease, unspecified
CPT/HCPCS: 70553; A9585

== ENCOUNTER → 2023-05-29 | Outpatient (CLI) | payer MEDICARE ==
[2023-05-29 16:31] LABS: HCT 44.8 % (39.6-50.0); HGB 14.9 d/dL (13.0-17.0); MCH 30.4 pg (27.0-32.0); MCHC 33.3 d/dL (32.0-37.0); MCV 91.4 FL (80.0-97.0); Mean Platelet Volume 11.1 FL (9.5-12.2); NRBC Per 100 WBC 0 X 10*3/uL (0.00-0.01); Platelet Count 277 X 10*3/uL (140-440); RDW 13.9 % (11.5-14.5)
[2023-05-29 16:50] LABS: Chol/HDL Ratio 4.86 Ratio
[2023-05-29 16:51] LABS: ALT 34 U/L (10-49); AST 22 U/L (14-35); Albumin 4.5 d/dL (3.8-4.9); Albumin/Globulin Ratio 1.67 Ratio (1.60-3.17); Alkaline Phosphatase 60 U/L (41-126); BUN/Creat Ratio 18.46 Ratio (12.00-20.00); Calcium 9.4 mg/dL (8.7-10.3); Carbon Dioxide 25.5 mmol/L (21.6-31.8); Chloride 106 mmol/L (96-109); Globulin 2.7 d/dL (1.6-3.3); Glucose 99 mg/dL (70-110); LDL Cholesterol,Calculated 54.5 mg/dL (0.0-131.0); Potassium 4.7 mmol/L (3.5-5.5); Sodium 142 mmol/L (135-145); T4, Free (Free Thyroxine) 1.32 ng/dL (0.80-1.80); Total Bilirubin 0.8 mg/dL (0.3-1.2); Total Protein 7.2 d/dL (6.2-8.2)
== END | disposition home or self-care (01) ==
LOC: LABWHC1 12:06
PROVIDERS: ATTEND Thoracic Surgery (Cardiothoracic Vascular Surgery)
DX: Z00.00 Encounter for general adult medical examination without abnormal findings (principal); Z12.5 Encounter for screening for malignant neoplasm of prostate
CPT/HCPCS: 84439; 80053; 80061; 84443; 85027; 36415; G0103

== ENCOUNTER → 2023-11-25 | Outpatient (CLI) | payer MEDICARE, BC ==
[2023-11-25 16:19] LABS: ALT 32 U/L (10-49); AST 19 U/L (14-35); Albumin 4.5 g/dL (3.8-4.9); Albumin/Globulin Ratio 1.55 Ratio (1.60-3.17); Alkaline Phosphatase 66 U/L (41-126); BUN/Creat Ratio 14.45 Ratio (12.00-20.00); Blood Urea Nitrogen 15.9 mg/dL (9.0-27.0); Calcium 9.4 mg/dL (8.7-10.3); Chloride 107 mmol/L (96-109); Chol/HDL Ratio 4.77 Ratio; Globulin 2.9 g/dL (1.6-3.3); Glucose 113 mg/dL (70-110); LDL Cholesterol,Calculated 97.2 mg/dL (0.0-131.0); Potassium 4.7 mmol/L (3.5-5.5); Prostate Specific Antigen 3.52 ng/mL (0.000-6.500); Sodium 145 mmol/L (135-145); T4, Free (Free Thyroxine) 1.24 ng/dL (0.80-1.80); Total Bilirubin 0.8 mg/dL (0.3-1.2); Total Protein 7.4 g/dL (6.2-8.2)
[2023-11-25 16:40] LABS: Basophils # (A) 0.11 X 10*3/uL (0.00-0.10); Basophils % (A) 1.5 %; Eosinophils # (A) 0.42 X 10*3/uL (0.04-0.35); Eosinophils % (A) 5.9 %; HCT 44.1 % (39.6-50.0); HGB 14.4 g/dL (13.0-17.0); Lymphocytes # (A) 1.92 X 10*3/uL (0.90-5.00); MCH 29.9 pg (27.0-32.0); MCHC 32.7 g/dL (32.0-37.0); MCV 91.5 FL (80.0-97.0); Mean Platelet Volume 10.7 FL (9.5-12.2); Monocytes # (A) 0.79 X 10*3/uL (0.20-1.00); Monocytes % (A) 11.1 %; NRBC Per 100 WBC 0 X 10*3/uL (0.00-0.01); Neutrophils # (A) 3.85 X 10*3/uL (1.80-7.70); Neutrophils % (A) 54.2 %; Platelet Count 241 X 10*3/uL (140-440); RBC 4.82 X 10*6/uL (4.40-5.60); RDW 14.7 % (11.5-14.5); WBC 7.11 X 10*3/uL (4.50-10.00)
== END | disposition home or self-care (01) ==
LOC: LABWHC1 11:15
PROVIDERS: ATTEND Internal Medicine Geriatric Medicine
DX: Z13.1 Encounter for screening for diabetes mellitus (principal); I10 Essential (primary) hypertension; E78.2 Mixed hyperlipidemia; E07.9 Disorder of thyroid, unspecified; R97.20 Elevated prostate specific antigen [PSA]
CPT/HCPCS: 36415; 80053; 80061; 83036; 84153; 84439; 84443; 85025

== ENCOUNTER → 2024-01-28 | Outpatient (CLI) | payer MEDICARE ==
[2024-01-28 15:41] LABS: Basophils # (A) 0.04 X 10*3/uL (0.00-0.10); Basophils % (A) 0.6 %; Eosinophils # (A) 0.15 X 10*3/uL (0.04-0.35); Eosinophils % (A) 2.3 %; HCT 41.5 % (39.6-50.0); HGB 13.3 g/dL (13.0-17.0); MCV 93.5 FL (80.0-97.0); Monocytes # (A) 0.97 X 10*3/uL (0.20-1.00); Monocytes % (A) 14.6 %; NRBC Per 100 WBC 0 X 10*3/uL (0.00-0.01); Neutrophils # (A) 3.69 X 10*3/uL (1.80-7.70); Neutrophils % (A) 55.3 %; Platelet Count 239 X 10*3/uL (140-440); RBC 4.44 X 10*6/uL (4.40-5.60); RDW 14.2 % (11.5-14.5); WBC 6.66 X 10*3/uL (4.50-10.00)
[2024-01-28 15:47] LABS: ALT 37 U/L (10-49); AST 24 U/L (14-35); Albumin 4.4 g/dL (3.8-4.9); Albumin/Globulin Ratio 1.69 Ratio (1.60-3.17); Alkaline Phosphatase 78 U/L (41-126); Amylase 36 U/L (23-121); BUN/Creat Ratio 14.38 Ratio (12.00-20.00); Blood Urea Nitrogen 18.7 mg/dL (9.0-27.0); Calcium 9.2 mg/dL (8.7-10.3); Carbon Dioxide 24.5 mmol/L (21.6-31.8); Chloride 104 mmol/L (96-109); Globulin 2.6 g/dL (1.6-3.3); Glucose 107 mg/dL (70-110); Lipase 31 U/L (14-60); Potassium 4.2 mmol/L (3.5-5.5); Sodium 138 mmol/L (135-145); Total Bilirubin 0.8 mg/dL (0.3-1.2)
== END | disposition home or self-care (01) ==
LOC: LABWHC1 10:55
PROVIDERS: ATTEND Internal Medicine Geriatric Medicine
DX: R10.9 Unspecified abdominal pain (principal)
CPT/HCPCS: 36415; 80053; 82150; 83690; 85025

== ENCOUNTER → 2024-01-29 | Outpatient (CLI) | payer MEDICARE ==
[2024-01-29 18:59] LABS: Appearance,Urine Cloudy (Clear); Bilirubin,Urine Negative (Negative); Blood,Urine Negative (Negative); Color,Urine Dark Yellow (Yellow); Ketones,Urine Trace (Negative); Nitrite,Urine Negative (Negative); Specific Gravity,Urine 1.026 (1.001-1.030)
[2024-01-29 19:13] LABS: Bacteria,Urine Trace (None Seen); Calcium Oxalate Crystals,Urine Present (None Seen)
--- NOTE | 2024-01-30 17:18 | CT ---
EXAMINATION TYPE: CT abdomen pelvis w con CT DLP: 1240.6 mGycm, Automated exposure control for dose reduction was used. DATE OF EXAM: 01/29/2024 4:43 PM COMPARISON: 10/17/2016 CLINICAL INDICATION:Male, 73 years old with history of K57.93 DVTRCLI OF INTEST, PART UNSP, W/O PERF OR A; Lower abdominal pain x 2 weeks, history of diverticulitis TECHNIQUE: Axial CT abdomen pelvis w con;Sagittal and coronal reformats were created on a separate w orkstation. Contrast used:80 mL of Isovue 300 with IV Contrast, (none if empty) Oral contrast used: with Oral Contrast (none if empty) FINDINGS: LOWER CHEST: Coronary calcifications involving the left anterior descending and circumflex coronary a rteries. ABDOMEN LIVER: Unremarkable GALLBLADDER AND BILE DUCTS: Unremarkable. PANCREAS: Unremarkable. SPLEEN: Unremarkable. ADRENAL GLANDS: Unremarkable. KIDNEYS AND URETERS: No evidence of hydronephrosis or renal calculus. The ureters are unremarkable. PELVIS BLADDER: Unremarkable REPRODUCTIVE: Prostate is enlarged in size measuring 6.2. Cm in transverse dimension. ABDOMEN & PELVIS STOMACH AND BOWEL: No evidence of bowel obstruction. There are scattered colonic diverticula. There i s increased vascularity but no crystal inflammation around the colon to suggest diverticulitis. PERITONEUM/RETROPERITONEUM: No evidence of pneumoperitoneum or free fluid. VASCULATURE: Mild atherosclerotic calcifications are present throughout the abdominal aorta and its b ranches. No evidence of aortic aneurysm. MUSCULOSKELETAL: No acute osseous abnormalities. Mild disc degeneration changes are present throughou t the thoracolumbar spine. LYMPH NODES: No gross evidence for lymphadenopathy. SOFT TISSUE/ABDOMINAL WALL: Left fat-containing inguinal hernia. IMPRESSION: 1. No evidence for acute abdominal process. No evidence for obstructive uropathy or renal calculus. The bladder carranza are within normal limits. 2. Prostatomegaly, correlate with serum PSA. Findings communicated to Dr. Johan Abarca DO on 01/30/2024 5:[address] Keith Shannon.
== END | disposition home or self-care (01) ==
LOC: RADCTMAIN 14:47
PROVIDERS: ATTEND Thoracic Surgery (Cardiothoracic Vascular Surgery)
DX: K57.93 Diverticulitis of intestine, part unspecified, without perforation or abscess with bleeding (principal); N40.0 Benign prostatic hyperplasia without lower urinary tract symptoms
CPT/HCPCS: 81001; 74177; Q9967

== ENCOUNTER 2024-02-09 07:16 | Day surgery (SDC) | payer MEDICARE ==
[2024-02-08 10:34] VITALS: BMI 26.6
[~2024-02-09 07:16] MED LIST: LIDOCAINE 1% (10MG/ML) FOR IV START INTRADERMA PRN
[2024-02-09 07:30] VITALS: RESP 16; TEMP 97.4
[2024-02-09] MEDS: IV FLUID CONTINUATION 1,000 ML IV ONE (07:41)
[2024-02-09] MEDS: LACTATED RINGERS 1,000 ML IV SCH (07:41)
[2024-02-09] MEDS ORDERED: PROPOFOL 10 MG/ML 20 ML VIAL IV ONE (08:07)
--- NOTE | 2024-02-09 08:10 | P.GSHP ---
History of Present Illness H&P Date: 02/09/24 Chief Complaint: Change in bowel habits 74-year-old male here for colonoscopy. Patient has had recent lower abdominal discomfort and pressure-like pain. Some looser stools. No rectal bleeding. Stools are narrow. Past Medical History Past Medical History: Hypertension History of Any Multi-Drug Resistant Organisms: None Reported Past Surgical History: Orthopedic Surgery, Tonsillectomy Additional Past Surgical History / Comment(s): Right patella surgery, dislocated mandible. Past Anesthesia/Blood Transfusion Reactions: No Reported Reaction, Motion Sickness Smoking Status: Never smoker - Past Family History Mother Family Medical History: Deep Vein Thrombosis (DVT) Medications and Allergies Home Medications Medication Instructions Recorded Confirmed Type Aspirin [Adult Low Dose Aspirin EC] 81 mg PO DAILY 04/28/17 02/08/24 History Vitamin B Complex 1 cap PO DAILY 04/28/17 02/08/24 History Co Q 10 (Unknown Dose) 1 tab PO DAILY 02/08/24 02/08/24 History Ezetimibe [Zetia] 10 mg PO DAILY 02/08/24 02/09/24 History Krill Oil (Unknown Dose) 1 tab PO DAILY 02/08/24 02/08/24 History Lutein/Zeaxanthin 1 each PO DAILY 02/08/24 02/08/24 History [Lutein-Zeaxanthin 20-4 mg Softgel] Multivitamins, Thera [Multivitamin 1 tab PO DAILY 02/08/24 02/08/24 History (formulary)] Rosuvastatin Calcium 10 mg PO DAILY 02/08/24 02/09/24 History Valsartan 320 mg PO DAILY 02/08/24 02/09/24 History Vitamin C (Unknown Dose) 1 tab PO DAILY 02/08/24 02/08/24 History Vitamin D (Unknown Dose) 1 tab PO DAILY 02/08/24 02/08/24 History Vitamin E (Unknown Dose) 1 tab PO DAILY 02/08/24 02/08/24 History amLODIPine BESYLATE 10 mg PO BID 02/08/24 02/09/24 History carvediloL 12.5 mg PO BID 02/08/24 02/09/24 History Allergies Allergy/AdvReac Type Severity Reaction Status Date / Time Penicillins Allergy Rash/Hives Verified 02/09/24 07:28 Tetanus Vaccines and Toxoid AdvReac Nausea & Verified 02/09/24 07:28 Vomiting & Diarrhea Surgical - Exam Vital Signs Temp Pulse Resp BP Pulse Ox 97.4 F L 61 16 131/82 97 02/09/24 07:29 02/09/24 07:29 02/09/24 07:29 02/09/24 07:29 02/09/24 07:29 Physical exam: General: Well-developed, well-nourished HEENT: Normocephalic, sclerae nonicteric Abdomen: Nontender, nondistended Extremities: No edema Neuro: Alert and oriented Assessment and Plan (1) Change in bowel habits Narrative/Plan: Will proceed with colonoscopy at this time. Current Visit: Yes Status: Acute Code(s): R19.4 - CHANGE IN BOWEL HABIT SNOMED Code(s): 94403577
--- NOTE | 2024-02-09 08:31 | P.PCN ---
Date of Procedure: 02/09/24 Procedure(s) Performed: PREOPERATIVE DIAGNOSIS: Change in bowel habits POSTOPERATIVE DIAGNOSIS: Mild left-sided colitis, diverticulosis, sigmoid colon polyp PROCEDURE: Colonoscopy with snare polypectomy and biopsy ANESTHESIA: MAC SURGEON: Manpreet Turner M.D. SPECIMENS: Polyp, random colon ENDOSCOPIC PROCEDURE: The patient was placed on the endoscopy table in the left decubitus position. The Olympus colonoscope was inserted into the anus and passed under direct visualization to the base of the cecum. The appendiceal orifice was visualized. From that point the scope was slowly withdrawn inspecting all surfaces carefully. There were no neoplastic inflammatory or polypoid lesions throughout the cecum, ascending, and transverse colon. Throughout the descending and sigmoid colon there was mild inflammatory changes present with subtle erythema and subtle edema noted. There was no erosions or ulcerations. No blood was seen or mucus. Random biopsies throughout that area took place. The patient had extensive left-sided diverticulosis. Additionally in the sigmoid colon a small polyp was seen and removed using the snare with cautery technique. The rectum appeared normal. Cultures were taken of the stool and sent for culture and ova and parasite. Digital rectal examination was normal. The patient was taken to the recovery room in stable condition per anesthesia guidelines. RECOMMENDATIONS: Await biopsy results. Await culture results. Monitor for recurrent symptoms of lower abdominal pain or diarrhea.
[2024-02-09 08:56] VITALS: BP 118/77; PULSE 64
[2024-02-10 14:19] LABS: Cryptosporidium Antigen Negative (Negative)
== END 2024-02-09 09:19 | disposition home or self-care (01) ==
LOC: ORWHC2ENDO 07:16
PROVIDERS: ATTEND Surgery
DX: D12.5 Benign neoplasm of sigmoid colon (principal); K57.30 Diverticulosis of large intestine without perforation or abscess without bleeding; K51.50 Left sided colitis without complications; I10 Essential (primary) hypertension; K21.9 Gastro-esophageal reflux disease without esophagitis; E78.5 Hyperlipidemia, unspecified; Z88.0 Allergy status to penicillin; Z88.7 Allergy status to serum and vaccine; Z79.82 Long term (current) use of aspirin; Z79.899 Other long term (current) drug therapy
CPT/HCPCS: 45380; 88305; 87045; 87329; 87328; 87046; 45385; J2704

== ENCOUNTER → 2024-02-24 | Outpatient (CLI) | payer MEDICARE ==
[2024-02-24 18:58] LABS: Appearance,Urine Clear (Clear); Bilirubin,Urine Negative (Negative); Blood,Urine Negative (Negative); Color,Urine Yellow (Yellow); Ketones,Urine Negative (Negative); Nitrite,Urine Negative (Negative); PH, Urine 5.5; Specific Gravity,Urine 1.027 (1.001-1.030); Urobilinogen,Urine 0.2 E.U./DL
== END | disposition home or self-care (01) ==
LOC: LABWHC1 14:26
PROVIDERS: ATTEND Internal Medicine Geriatric Medicine
DX: R30.0 Dysuria (principal)
CPT/HCPCS: 81003; 87086

== ENCOUNTER → 2024-05-26 | Outpatient (CLI) | payer MEDICARE ==
[2024-05-26 10:36] LABS: Basophils # (A) 0.08 X 10*3/uL (0.00-0.10); Basophils % (A) 1.3 %; Eosinophils # (A) 0.42 X 10*3/uL (0.04-0.35); Eosinophils % (A) 7.1 %; HCT 42.8 % (39.6-50.0); HGB 14.2 g/dL (13.0-17.0); Lymphocytes # (A) 2.01 X 10*3/uL (0.90-5.00); Lymphocytes % (A) 33.8 %; MCH 30.1 pg (27.0-32.0); MCHC 33.2 g/dL (32.0-37.0); MCV 90.9 FL (80.0-97.0); Mean Platelet Volume 10.5 FL (9.5-12.2); Monocytes # (A) 0.68 X 10*3/uL (0.20-1.00); Monocytes % (A) 11.4 %; NRBC Per 100 WBC 0 X 10*3/uL (0.00-0.01); Neutrophils # (A) 2.75 X 10*3/uL (1.80-7.70); Neutrophils % (A) 46.2 %; Platelet Count 235 X 10*3/uL (140-440); RBC 4.71 X 10*6/uL (4.40-5.60); RDW 14.3 % (11.5-14.5); WBC 5.95 X 10*3/uL (4.50-10.00)
[2024-05-26 10:44] LABS: ALT 42 U/L (10-49); AST 30 U/L (14-35); Albumin 4.2 g/dL (3.8-4.9); Albumin/Globulin Ratio 1.68 Ratio (1.60-3.17); Alkaline Phosphatase 64 U/L (41-126); BUN/Creat Ratio 14.36 Ratio (12.00-20.00); Blood Urea Nitrogen 15.8 mg/dL (9.0-27.0); Calcium 8.9 mg/dL (8.7-10.3); Carbon Dioxide 25.7 mmol/L (21.6-31.8); Chloride 107 mmol/L (96-109); Chol/HDL Ratio 2.98 Ratio; Globulin 2.5 g/dL (1.6-3.3); Glucose 111 mg/dL (70-110); LDL Cholesterol,Calculated 58.9 mg/dL (0.0-131.0); Potassium 3.7 mmol/L (3.5-5.5); Sodium 142 mmol/L (135-145); T4, Free (Free Thyroxine) 1.26 ng/dL (0.80-1.80); Total Bilirubin 0.6 mg/dL (0.3-1.2); Total Protein 6.7 g/dL (6.2-8.2)
== END | disposition home or self-care (01) ==
LOC: LABWHC1 08:01
PROVIDERS: ATTEND Internal Medicine Geriatric Medicine
CPT/HCPCS: 36415; 80053; 80061; 83036; 84439; 84443; 85025

== ENCOUNTER → 2024-11-23 | Outpatient (CLI) | payer MEDICARE ==
[2024-11-23 14:56] LABS: Basophils % (A) 1.4 %; Eosinophils # (A) 0.51 X 10*3/uL (0.04-0.35); Eosinophils % (A) 7.2 %; HCT 44.4 % (39.6-50.0); HGB 14.4 g/dL (13.0-17.0); Lymphocytes # (A) 2.56 X 10*3/uL (0.90-5.00); MCH 30.1 pg (27.0-32.0); MCHC 32.4 g/dL (32.0-37.0); MCV 92.9 FL (80.0-97.0); Mean Platelet Volume 10.8 FL (9.5-12.2); Monocytes # (A) 0.91 X 10*3/uL (0.20-1.00); Monocytes % (A) 12.8 %; NRBC Per 100 WBC 0 X 10*3/uL (0.00-0.01); Neutrophils # (A) 3.03 X 10*3/uL (1.80-7.70); Neutrophils % (A) 42.5 %; Platelet Count 258 X 10*3/uL (140-440); RBC 4.78 X 10*6/uL (4.40-5.60); RDW 13.8 % (11.5-14.5); WBC 7.12 X 10*3/uL (4.50-10.00)
[2024-11-23 15:19] LABS: ALT 40 U/L (10-49); AST 28 U/L (14-35); Albumin 4.3 g/dL (3.8-4.9); Albumin/Globulin Ratio 1.54 Ratio (1.60-3.17); Alkaline Phosphatase 61 U/L (41-126); BUN/Creat Ratio 15.46 Ratio (12.00-20.00); Blood Urea Nitrogen 20.1 mg/dL (9.0-27.0); Calcium 9.2 mg/dL (8.7-10.3); Carbon Dioxide 25.5 mmol/L (21.6-31.8); Chloride 106 mmol/L (96-109); Chol/HDL Ratio 3.42 Ratio; Globulin 2.8 g/dL (1.6-3.3); Glucose 103 mg/dL (70-110); LDL Cholesterol,Calculated 58.5 mg/dL (0.0-131.0); Potassium 4.2 mmol/L (3.5-5.5); Sodium 142 mmol/L (135-145); T4, Free (Free Thyroxine) 1.37 ng/dL (0.80-1.80); Total Bilirubin 0.8 mg/dL (0.3-1.2); Total Protein 7.1 g/dL (6.2-8.2)
== END | disposition home or self-care (01) ==
LOC: LABWHC1 07:49
PROVIDERS: ATTEND Internal Medicine Geriatric Medicine
DX: I10 Essential (primary) hypertension (principal); E78.2 Mixed hyperlipidemia; R73.9 Hyperglycemia, unspecified; E07.9 Disorder of thyroid, unspecified
CPT/HCPCS: 36415; 80053; 80061; 83036; 84439; 84443; 85025